=== PATIENT | female | born 1970 | race Hispanic/Latino ===

== ENCOUNTER 2017-04-09 21:24 | Observation (INO) | payer SELFPAY ==
[2017-04-09 23:23] LABS: #Basophils 0.1 thou/uL (0.0-0.2); #Eosinphils 0.2 thou/uL (0.0-0.7); #Lymphocytes 2.3 thou/uL (1.20-3.40); #Monocytes 0.5 thou/uL (0.11-0.59); #Neutrophils 5.4 thou/uL (1.40-6.50); %Basophils 0.7 % (0.0-1.0); %Eosinophils 2.1 % (0.0-10.0); %Lymphocytes 27.5 % (21.0-51.0); %Monocytes 6.2 % (0.0-10.0); Hematocrit 34.1 % (36.0-47.0); Mean Platelet Volume 6.1 fL (7.4-10.4); Red Blood Cell (RBC) Count 4.23 mill/uL (4.20-5.40); White Blood Cell (WBC) Count 8.5 thou/uL (4.8-10.8)
[2017-04-09] MEDS ORDERED: Lidocaine Viscous Sol 2% 15 ml UD Cup ONE (23:34)
[2017-04-09] MEDS ORDERED: Mag-Al 1200 mg/1200 mg/30 ML UDCUP ONE (23:34)
[2017-04-09] MEDS ORDERED: diphenhydrAMINE HCl 50 MG/ML 1 ML VIAL ONE (23:34)
[2017-04-09] MEDS ORDERED: Metoclopramide HCl 10 MG/2 ML VIAL ONE (23:34)
[2017-04-09 23:45] LABS: ALT (SGPT) 12 U/L (8-55); AST (SGOT) 15 U/L (5-34); Alkaline Phosphatase 78 U/L (40-150); Anion Gap 12 mmol/L (10-20); BUN (Urea Nitrogen) 11 mg/dL (7.0-18.7); Bilirubin, Total 0.2 mg/dL (0.2-1.2); Calc. Creatinine Clearance 0 mL/min (70-130); Calcium 9.1 mg/dL (7.8-10.44); Carbon Dioxide 22 mmol/L (22-29); Chloride 107 mmol/L (98-107); Estimated GFR-MDRD 86; Globulin 3.2 g/dL (2.4-3.5); Lipase 102 U/L (8-78); Protein, Total 6.9 g/dL (6.0-8.3)
--- NOTE | 2017-04-10 00:04 | RAD ---
UPRIGHT PORTABLE CHEST ONE VIEW: 04/09/17 HISTORY: 47-year-old female with headache and mid epigastric pain. Heart size is within normal limits. The lungs are clear. No confluent pneumonia, overt edema or pleu ral effusion. IMPRESSION: No acute intrathoracic disease. POS: [facility]
--- NOTE | 2017-04-10 00:16 | CT ---
BRAIN CT WITHOUT IV CONTRAST: 04/09/17 HISTORY: 47-year-old female with headache. There is a 0.4 cm diameter circumscribed calcification in the cortical region in the left frontal lo be peripherally located without evidence for edema or mass effect. No mass or midline shift. No acut e hemorrhage. Sinuses and mastoids are clear. IMPRESSION: Isolated 0.4 cm diameter calcification in the left frontal lobe cortex region, this could possibly r epresent residual from neurocysticercosis. No acute process. If the patient persistent or worsening headache, consideration for a nonemergent followup MRI of the brain with and without IV contrast might be of benefit. POS: [facility]
[2017-04-10] MEDS ORDERED: HYDROcodone/Acetaminophen 5/325 mg Tablet PO PRN ×2 (01:41)
[2017-04-10] MEDS ORDERED: Sodium Chloride 0.9% 1,000 ML IV SCH (01:41)
[2017-04-10] MEDS ORDERED: Acetaminophen 325 MG TAB PO PRN ×2 (01:41→02:27)
[2017-04-10] MEDS ORDERED: Ondansetron HCl/PF 4 MG/2 ML Vial IVP PRN (01:41)
[2017-04-10] MEDS ORDERED: Ketorolac Tromethamine 30 MG/ML VIAL IVP PRN ×2 (01:41→02:27)
[2017-04-10] MEDS ORDERED: Ondansetron ODT 4 MG TAB SL PRN (01:41)
[2017-04-10] MEDS ORDERED: Ibuprofen 200 MG TAB PO PRN (02:27)
--- NOTE | 2017-04-10 04:17 | HP ---
REASON FOR ADMISSION: Headache, which is intractable. HISTORY OF PRESENTING ILLNESS: The patient gives history of having headache, which was left-sided in the fronto-temporal area on Saturday. This got worse to the point it is now all over. Has no history of migraine. No complaints of postnasal discharge or nasal stuffiness. No complaints of exposure to viral infections. She had vomited once yesterday evening. All of this concerned her as this is all new to her and she came to the emergency room. No complaints of any weakness in any of the extremities. No history of trauma to the neck or head. No fever. Has no cough or expectoration or fever. PAST MEDICAL/SURGICAL HISTORY: x3. CURRENT MEDICATIONS: None. ALLERGIES: Allergic to MORPHINE. PERSONAL HISTORY: Does not abuse alcohol or drugs. No history of smoking. FAMILY HISTORY: Mother of stomach cancer at the age of 52 years. She has had history of diabetes as well. Father is healthy except for benign prostatic hypertrophy and is living. The patient stays at home. She is originally from [place] and has been living here for last 14 years. All of her 3 children are healthy from . REVIEW OF SYSTEMS: The following complete review of systems was negative, unless otherwise mentioned in the HPI or below: Constitutional: Weight loss or gain, ability to conduct usual activities. Skin: Rash, itching. Eyes: Double vision, pain. ENT/Mouth: Nose bleeding, neck stiffness, pain, tenderness. Cardiovascular: Palpitations, dyspnea on exertion, orthopnea. Respiratory: Shortness of breath, wheezing, cough, hemoptysis, fever or night sweats. Gastrointestinal: Poor appetite, abdominal pain, heartburn, nausea, vomiting, constipation, or diarrhea. Genitourinary: Urgency, frequency, dysuria, nocturia. Musculoskeletal: Pain, swelling. Neurologic/Psychiatric: Anxiety, depression. Allergy/Immunologic: Skin rash, bleeding tendency. PHYSICAL EXAMINATION: GENERAL: The patient is a 47-year-old female, who is currently not in any acute distress. Her headache is slowly resolving. VITAL SIGNS: Blood pressure 146/84, pulse 76 per minute, respiratory rate 18 per minute, temperature 98.7 degrees Fahrenheit, saturating 99% on room air. NECK: Supple, no elevated JVD. HEENT: Eyes: Extraocular muscles intact. Pupils reacting to light. Oral cavity mucous membranes are moist. No exudates or congestion. CARDIOVASCULAR SYSTEM: S1, S2 heard. Regular rhythm. RESPIRATORY SYSTEM: Air entry 2+ bilateral. No rales or rhonchi. ABDOMEN: Soft, bowel sounds heard. No tenderness, rigidity, or guarding. EXTREMITIES: No peripheral edema or calf tenderness. VASCULAR SYSTEM: Peripheral pulses are 2+ bilateral, no ischemic ulcerations or gangrene. CENTRAL NERVOUS SYSTEM: No gross focal deficits seen. No meningeal signs of irritation seen. PSYCHIATRIC SYSTEM: The patient's mood is euthymic. No hallucinations or delusions. LABORATORY AND X-RAY FINDINGS: H and H 11 and 34, platelet count 318. White count of 8.5, MCV is 80 with 63% neutrophils. Electrolytes are stable. BUN 11 , creatinine 0.7, glucose 111. Liver enzymes are within normal limits. Lipase is slightly high at 102. Chest x-ray done shows no acute intrathoracic disease. CT brain done shows isolated 0.4 cm diameter calcification in the left frontal lobe cortex region could possibly represent residual from neurocysticercosis. No acute process was seen. CLINICAL IMPRESSION AND PLAN: The patient will be under observation on medical floor for intractable headache. Her headache is slowly getting resolved. She has had a dose of Toradol in the emergency room, which is helping her. In view of findings of CT brain with suspected neurocysticercosis, we will obtain MRI for completion sake. Her calcified mass is unlikely to have caused her headache with nausea at present. She will be on Pepcid 20 mg twice daily. We will continue to closely monitor her for any hemodynamic compromise. If patient 's headache is resolved, she can be safely discharged home. JOVANAD
[2017-04-10 04:42] LABS: Anion Gap 10 mmol/L (10-20); BUN (Urea Nitrogen) 11 mg/dL (7.0-18.7); Calc. Creatinine Clearance 129 mL/min (70-130); Calcium 8.6 mg/dL (7.8-10.44); Carbon Dioxide 23 mmol/L (22-29); Chloride 111 mmol/L (98-107); Estimated GFR-MDRD Greater than 90
[2017-04-10 07:52] VITALS: TEMP 98.7
[2017-04-10] MEDS ORDERED: FLU VACC QS2017-18 36 mo. & older 0.5 ML SYRINGE IM ONE (09:00)
[2017-04-10] MEDS ORDERED: Enoxaparin Sodium 40 MG/0.4 ML SYRINGE SC SCH (09:00)
[2017-04-10] MEDS ORDERED: Famotidine 20 MG TAB PO SCH (09:00)
[2017-04-10 11:24] VITALS: BP 121/62
[2017-04-10] MEDS ORDERED: Mag-Al 1200 mg/1200 mg/30 ML UDCUP PO PRN (12:58)
--- NOTE | 2017-04-10 15:46 | DIS ---
DATE OF ADMISSION: 04/10/2017 DATE OF DISCHARGE: 04/10/2017 DISCHARGE DIAGNOSES: 1. Headache, likely migraine variant with gustatory aura. 2. Severe obesity. 3. Abdominal pain secondary to gastritis. CONSULTATIONS: Neurology: Not seen prior to discharge. PROCEDURES PERFORMED: None. HISTORY AND PHYSICAL AND HOSPITAL COURSE: Ms. Maxx Fong is a pleasant 47-year-old obese [place] female, placed in observation early this morning for headache and nausea. After being admitted, she was started on some Tylenol and got some medicine down the ER and has felt much better. The only complaint to the day was abdominal pain in the epigastric region. She respo nded well to Maalox and was feeling much better and wanted to go home. On further questioning today, she states her headache had been going on for several days, but worse over the last 24 hours. She described a left hemispheric headache that seemed to progress to the en tire totalis of the head and was accompanied by sour taste aura. With medicines, this resolved and she is feeling much better. No further nausea and was able to keep down p.o. food and liquids. PHYSICAL EXAMINATION: The patient was seen and examined on the day of discharge. Discharge plan an d disposition were discussed with the patient face to face at the bedside in the presence of her son . DISCHARGE MEDICATIONS: 1. Tramadol 50 mg 1 tab p.o. q.i.d. p.r.n. severe pain. 2. Tylenol 650 mg p.o. q.4 hours p.r.n. 3. Protonix 40 mg p.o. daily. 4. Maalox over the counter as needed for epigastric pain. DISCHARGE CONDITION: Stable. DISCHARGE DISPOSITION: The patient is being discharged home via private vehicle. FOLLOWUP APPOINTMENT: PCP, [facility] within a week.
[2017-04-16 09:19] LABS: Cysticercus IgG AB Negative (Negative)
== END 2017-04-10 14:51 | disposition home or self-care (01) ==
LOC: ERS 21:24 → 2SW 04-10 01:23
PROVIDERS: ADMIT Internal Medicine; ATTEND Internal Medicine
DX: R51 Headache (principal); E66.01 Morbid (severe) obesity due to excess calories; K29.70 Gastritis, unspecified, without bleeding; R10.9 Unspecified abdominal pain; Z68.31 Body mass index [BMI] 31.0-31.9, adult; Z79.899 Other long term (current) drug therapy; Z88.5 Allergy status to narcotic agent; Z98.890 Other specified postprocedural states; Z80.0 Family history of malignant neoplasm of digestive organs; Z83.3 Family history of diabetes mellitus
CPT/HCPCS: 36415; 70450; 71010; 80048; 80053; 83690; 84182; 85025; 87633; 90471; 90682; 96374; 96375; G0008; G0378; J1200; J1650; J1885; J2765; Q2036

== ENCOUNTER 2020-04-12 21:22 | Emergency (ER) | payer SELFPAY ==
[~2020-04-12 21:22] MED LIST: Iopamidol 370 76% 100 ML VIAL ONE
[2020-04-12 22:31] LABS: Bilirubin Negative (Negative); Blood, Urine Negative (Negative); Clarity Clear (Clear); Glucose, Urine (Dipstick) Normal (Negative); Ketone, Urine Negative (Negative); Leukocyte Negative Leu/uL (Negative); Nitrite Negative (Negative); Protein, Urine (Dipstick) Negative (Neg-Trace); Specific Gravity, Urine 1.003 (1.002-1.036); Urobilinogen Normal mg/dL (Less than 2); pH, Urine 6.5 (5.0-9.0)
[2020-04-12 22:32] LABS: Pregnancy Test - Urine (BHCG) Negative (Negative); Pregu Control Background? CLEAR/WHITE (CLR/WHITE); Pregu Control Bar Appear? YES (CONTROL BAR); Specific Gravity 1.003 (1.002-1.036)
[2020-04-12 22:33] LABS: #Eosinphils 0.1 thou/uL (0.0-0.7); #Lymphocytes 3.9 thou/uL (1.20-3.40); #Monocytes 0.6 thou/uL (0.11-0.59); #Neutrophils 4.5 thou/uL (1.40-6.50); %Basophils 0.5 % (0.0-1.0); %Eosinophils 1.4 % (0.0-10.0); %Monocytes 6.7 % (0.0-10.0); %Neutrophils 49.4 % (42.0-75.0); Hemoglobin 11.2 g/dL (12.0-16.0); Mean Corpuscular HGB CONC 33.1 g/dL (32.0-36.0); Mean Corpuscular Hemoglobin 24.3 pg (27.0-31.0); Mean Corpuscular Volume 73.4 fL (78.0-98.0); Mean Platelet Volume 8.6 fL (7.4-10.4); Platelet Count 322 thou/uL (130-400); RBC Distribution Width 14.5 % (11.5-14.5); White Blood Cell (WBC) Count 9.2 thou/uL (4.8-10.8)
[2020-04-12 22:43] LABS: ALT (SGPT) 12 U/L (8-55); AST (SGOT) 28 U/L (5-34); Albumin 4.6 g/dL (3.5-5.0); Alkaline Phosphatase 81 U/L (40-110); Anion Gap 15 mmol/L (10-20); BUN (Urea Nitrogen) 18 mg/dL (7.0-18.7); Bilirubin, Total 0.2 mg/dL (0.2-1.2); Calc. Creatinine Clearance 0 mL/min (70-130); Calcium 8.9 mg/dL (7.8-10.44); Carbon Dioxide 21 mmol/L (22-29); Chloride 104 mmol/L (98-107); Estimated GFR-MDRD 68; Globulin 3.5 g/dL (2.4-3.5); Glucose 104 mg/dL (70-105); Lipase 176 U/L (8-78); Potassium 3.9 mmol/L (3.5-5.1); Protein, Total 8.1 g/dL (6.0-8.3); Sodium 136 mmol/L (136-145)
--- NOTE | 2020-04-12 23:09 | CT ---
EXAM: CT ABDOMEN AND PELVIS HISTORY: Pain COMPARISON: Stone protocol CT 10/14/2015 Procedure: Multiple contiguous axial images were obtained and a CT of the abdomen and pelvis with IV contrast. C oronal reformats were performed. FINDINGS: Lower Chest: Scar/atelectasis in the middle lobe and lingula Vessels: Normal caliber aorta Heart: Normal heart size Abdomen: Portal vein:Patent Gallbladder: No calcified gallstones. Normal caliber wall. Liver: within normal limits. Pancreas: within normal limits. Spleen: within normal limits. Adrenals: within normal limits. Kidneys: Symmetric enhancement. No obstructive uropathy. Peritoneum: No ascites or free air, no fluid collection. Bowel: Limited evaluation due to the lack of oral contrast administration. No evidence of bowel obstr uction. Ileocecal junction is unremarkable. Normal caliber appendix. Scattered fecal material in a nondistended, nondilated colon. Mesentery and Retroperitoneum: No enlarged mesenteric or retroperitoneal lymph nodes. Abdominal Wall: Umbilical hernia containing mesenteric fat. No bowel herniation. Pelvis: Reproductive Organs: Uterus is normal in appearance. Possible right ovary with multiple follicles. Le ft adnexa demonstrates a well-circumscribed hypodensity measuring 2.3 cm, possibly representing a left ovarian cyst. Pelvis: No mass, lymphadenopathy, free air or free fluid. Bladder: within normal limits. Bones: within normal limits. IMPRESSION: 1. Normal caliber appendix. 2. No evidence of a bowel obstruction 3. Left ovarian cyst. Follow-up ultrasound in 8 weeks to ensure cyst resolution.
--- NOTE | 2020-04-23 13:24 | EKG ---
Test Reason : Blood Pressure : / mmHG Vent. Rate : 079 BPM Atrial Rate : 079 BPM P-R Int : 164 ms QRS Dur : 072 ms QT Int : 398 ms P-R-T Axes : 054 027 040 degrees QTc Int : 456 ms Normal sinus rhythm Normal ECG Confirmed by YISEL LOO DO ([id number]), editorial project manager PATRICK DIMAS ([id number] on 04/23/2020 1:24:04 PM Referred By: Confirmed By:YISEL LOO DO
== END 2020-04-12 23:25 | disposition home or self-care (01) ==
LOC: ERS 21:22
DX: K59.00 Constipation, unspecified (principal); N83.202 Unspecified ovarian cyst, left side; E11.9 Type 2 diabetes mellitus without complications; E78.2 Mixed hyperlipidemia; E55.9 Vitamin D deficiency, unspecified; F17.210 Nicotine dependence, cigarettes, uncomplicated; Z79.84 Long term (current) use of oral hypoglycemic drugs; Z79.899 Other long term (current) drug therapy
CPT/HCPCS: 74177; 80053; 81003; 81025; 83690; 84484; 85025; 93005; 94760; Q9967

== ENCOUNTER 2021-09-04 15:11 | Emergency (ER) | payer SELFPAY ==
[2021-09-04 16:05] LABS: #Basophils 0.1 thou/uL (0.0-0.2); #Eosinphils 0.1 thou/uL (0.0-0.7); #Lymphocytes 1.9 thou/uL (1.20-3.40); #Monocytes 0.4 thou/uL (0.11-0.59); #Neutrophils 5.8 thou/uL (1.40-6.50); %Basophils 0.7 % (0.0-1.0); %Eosinophils 1.4 % (0.0-10.0); %Lymphocytes 22.7 % (21.0-51.0); %Monocytes 5.3 % (0.0-10.0); Hemoglobin 11.9 g/dL (12.0-16.0); Mean Corpuscular HGB CONC 31.7 g/dL (32.0-36.0); Mean Corpuscular Hemoglobin 24.5 pg (27.0-31.0); Mean Corpuscular Volume 77.3 fL (78.0-98.0); Mean Platelet Volume 6.6 fL (7.4-10.4); Platelet Count 372 thou/uL (130-400); RBC Distribution Width 14.6 % (11.5-14.5); Red Blood Cell (RBC) Count 4.85 mill/uL (4.20-5.40); White Blood Cell (WBC) Count 8.3 thou/uL (4.8-10.8)
[2021-09-04 16:26] LABS: ALT (SGPT) 10 U/L (8-55); AST (SGOT) 11 U/L (5-34); Albumin 4.2 g/dL (3.5-5.0); Alkaline Phosphatase 88 U/L (40-110); Anion Gap 14 mmol/L (10-20); BUN (Urea Nitrogen) 13 mg/dL (7.0-18.7); Bilirubin, Total 0.3 mg/dL (0.2-1.2); Calc. Creatinine Clearance 0 mL/min (70-130); Calcium 9.3 mg/dL (7.8-10.44); Carbon Dioxide 22 mmol/L (22-29); Chloride 105 mmol/L (98-107); Globulin 3.4 g/dL (2.4-3.5); Glucose 132 mg/dL (70-105); Potassium 3.9 mmol/L (3.5-5.1); Protein, Total 7.6 g/dL (6.0-8.3); Sodium 137 mmol/L (136-145)
[2021-09-04] MEDS ORDERED: Meclizine HCl 25 MG TAB ONE (17:34)
== END 2021-09-04 18:38 | disposition home or self-care (01) ==
LOC: ERS 15:11
DX: R42 Dizziness and giddiness (principal); E11.9 Type 2 diabetes mellitus without complications; E78.2 Mixed hyperlipidemia; F17.210 Nicotine dependence, cigarettes, uncomplicated; Z79.84 Long term (current) use of oral hypoglycemic drugs; Z79.899 Other long term (current) drug therapy
CPT/HCPCS: 36415; 71045; 80053; 84484; 85025; 93005

== ENCOUNTER 2022-01-19 01:39 | Emergency (ER) | payer SELFPAY ==
[2022-01-19] MEDS ORDERED: Ketorolac Tromethamine 30 MG/ML VIAL ONE (02:51)
[2022-01-19 02:59] LABS: #Eosinphils 0.2 thou/uL (0.0-0.7); #Monocytes 0.5 thou/uL (0.11-0.59); #Neutrophils 4.3 thou/uL (1.40-6.50); %Basophils 0.1 % (0.0-1.0); %Lymphocytes 37.6 % (21.0-51.0); %Monocytes 5.9 % (0.0-10.0); %Neutrophils 54.4 % (42.0-75.0); Hemoglobin 11.6 g/dL (12.0-16.0); Mean Corpuscular HGB CONC 33.3 g/dL (32.0-36.0); Mean Corpuscular Hemoglobin 25.1 pg (27.0-31.0); Mean Corpuscular Volume 75.3 fL (78.0-98.0); Mean Platelet Volume 6.8 fL (7.4-10.4); Platelet Count 366 thou/uL (130-400); RBC Distribution Width 14.5 % (11.5-14.5); Red Blood Cell (RBC) Count 4.61 mill/uL (4.20-5.40)
[2022-01-19 03:15] LABS: ALT (SGPT) 14 U/L (8-55); AST (SGOT) 14 U/L (5-34); Albumin 4.3 g/dL (3.5-5.0); Alkaline Phosphatase 99 U/L (40-110); Anion Gap 15 mmol/L (10-20); BUN (Urea Nitrogen) 15 mg/dL (7.0-18.7); Bilirubin, Total 0.3 mg/dL (0.2-1.2); Calc. Creatinine Clearance 0 mL/min (70-130); Calcium 9.5 mg/dL (7.8-10.44); Carbon Dioxide 24 mmol/L (22-29); Chloride 105 mmol/L (98-107); Estimated GFR 88; Globulin 3.2 g/dL (2.4-3.5); Glucose 136 mg/dL (70-105); Magnesium 2.2 mg/dL (1.6-2.6); Potassium 4.3 mmol/L (3.5-5.1); Protein, Total 7.5 g/dL (6.0-8.3); Sodium 140 mmol/L (136-145)
[2022-01-19 03:24] LABS: Bilirubin Negative (Negative); Blood, Urine 1+ (Negative); Clarity Clear (Clear); Glucose, Urine (Dipstick) Normal (Negative); Ketone, Urine Negative (Negative); Leukocyte 75 Leu/uL (Negative); Nitrite Negative (Negative); Protein, Urine (Dipstick) Negative (Neg-Trace); RBC/HPF 0-3 HPF (0-3); Specific Gravity, Urine 1.005 (1.002-1.036); Urobilinogen Normal mg/dL (Less than 2)
[2022-01-19 03:25] LABS: Bacteria/HPF 1+ HPF (None Seen)
== END 2022-01-19 04:50 | disposition home or self-care (01) ==
LOC: ERS 01:39
DX: M25.531 Pain in right wrist (principal); E11.9 Type 2 diabetes mellitus without complications; E78.5 Hyperlipidemia, unspecified; Z79.84 Long term (current) use of oral hypoglycemic drugs
CPT/HCPCS: 36415; 71045; 80053; 81003; 81015; 83735; 84484; 85025; 93005; 96372; J1885